=== PATIENT | male | born 1970 | race Two or more races ===

== ENCOUNTER 2024-04-27 08:19 | Outpatient (REF) | payer MEDICAID, SELFPAY ==
--- NOTE | ~2024-04-27 | XR_ITS ---
EXAMINATION: XR ANKLE RIGHT 3 VIEWS CLINICAL INFORMATION: Pain in right ankle and joints of right foot M25.571. COMPARISON: None TECHNIQUE: AP, lateral, and medial oblique views of the right ankle. FINDINGS: No fracture. Alignment is anatomic. No erosions. Mild to moderate degenerative changes in the mid foot. Achilles enthesophyte.. Soft tissues are normal. XR/XR ankle RT min 3V IMPRESSION: Mild to moderate degenerative changes in the midfoot. Achilles enthesophyte. Electronically signed by: Parker Santacruz MD 06/22/2024 08:54 AM EST
== END 2024-04-27 08:20 | disposition home or self-care (01) ==
LOC: HO.HOSX 08:19
PROVIDERS: Visit Provider Physician Assistant
DX: M19.071 Primary osteoarthritis, right ankle and foot (principal); M25.571 Pain in right ankle and joints of right foot
CPT/HCPCS: 73610; 99212

== ENCOUNTER 2024-04-27 10:52 | Outpatient (AMB) | payer MEDICAID, SELFPAY ==
--- NOTE | 2024-04-27 11:17 | MHC.OFFVIS ---
Vital Signs 04/27/24 11:18 Height 5 ft 9 in Weight 220 lb BMI 32.5 Intake Visit Reasons: BLOCK[employer] MET[employer] FORMS- RT ankle swelling Intake Note: Germán a 53 year old male who presents today for a new patient evaluation of right ankle. Patient reports for the past 10-12 months he has been experiencing intermittent swelling in his leg and his ankle stiffens up. Denies injury. He notices with cold weather his symptoms have been getting worse. No previous tx. He constantly limps and some days he is unable to bear weight. States numbness and tingling in his foot. He uses a cane with ambulation. Finds relief with ibuprofen. Allergies amoxicillin Allergy (Verified 04/27/24 11:19) Hives Medication List - Last Reconciled 04/27/24 by Lida Huang PA-C albuterol sulfate 90 mcg/actuation (Ventolin HFA) 2 puffs inhalation Q6H PRN buprenorphine-naloxone 8-2 mg (Suboxone) 3 film sublingual DAILY clonidine HCl 0.1 mg PO TID hydroxyzine pamoate mg PO TID methocarbamol 750 mg PO BID sertraline 25 mg PO DAILY trazodone 100 mg PO QPM HPI HPI [employer] FORMS- RT ankle swelling: Details: 53-year-old male who presents to the office today for an evaluation of right ankle pain for more than 10 months. He denies any ankle injury in the past. He currently states he has stiffness and sharp pain in his ankle as well as intermittent swelling in his leg. His pain is aggravated with sleeping, prolonged standing, walking long distances and in cold weather. His pain is alleviated with elevation. He also reports numbness and tingling in his foot. He constantly limps and, on some days, he is unable to weight bear. He uses a cane for ambulation. He finds mild relief with ibuprofen. He has not had any previous treatment. [facility] Social History (Updated 04/27/24 @ 11:19 by CHRISTIN Posada) Patient Tobacco Use Status: Current everyday Tobacco user Current occupational status: unemployed Review of Systems Const All systems reviewed & are unremarkable except as noted in HPI and below Physical Exam Vital Signs: BMI result Body Mass Index 32.5 Const General: cooperative, healthy appearing, comfortable, no acute distress, well developed and alert Orientation/consciousness: patient oriented x3 HEENT Head: Yes normal to inspection, Yes normocephalic and Yes atraumatic Eyes General: appearance normal, both eyes and all related structures Resp Effort & Inspection: normal respiratory effort and able to speak in complete sentences Cardio Rate: regular rate Peripheral pulses: Peripheral pulses 2+ throughout GI Palpation (GI): Soft to palpation Skin Lesions: no lesions Rashes: no rashes Neuro General: patient oriented x3 Extrem Other: Right ankle: Normal to inspection with no swelling over the medial and lateral malleolus with mild tenderness along the dorsum of the foot. No d discomfort along the posterior aspect of the ankle, no deformity along the Achilles tendon, negative Swartz?s. No pain along the syndesmosis or anterior tibia. No laxity, NVI. Results Reviewed Results Reviewed: Xrays of the right foot and ankle show mild oa Assessment & Plan Assessment & Plan (1) Osteoarthritis of right foot: Code(s): M19.071 - Primary osteoarthritis, right ankle and foot Category: Medical (2) Right ankle tendonitis: Code(s): M77.51 - Other enthesopathy of right foot and ankle Category: Medical Plan We discussed options which include PT, NSAIDs and injections. The patient will defer on the injection today and proceed with PT and NSAIDs. He was placed in a lace up ankle brace in the office today. A prescription of Celebrex was sent to his pharmacy. If symptoms persist, she will contact me , otherwise, PRN. Orders: Orders PT Evaluation and Treatment Today M19.071 - Primary osteoarthritis, right ankle and foot, M77.51 - Other enthesopathy of right foot and ankle XR ankle RT min 3V Today M25.571 - Pain in right ankle and joints of right foot Patient Instructions: Scribed for Lida Huang PA-C, by Connor Staples medical assistant supervisor, on 04/27/2024 at 11:15 AM EST.? I, Lida Huang PA-C, have personally reviewed and agree with the information entered by the scribe. Coding Level of Care Code New Pt Level 3 (61156) Complex EM visit Add On G2211 Diagnoses Osteoarthritis of right foot M19.071 Right ankle tendonitis M77.51
[2024-04-27 11:18] VITALS: BMI 32.5
== END 2024-04-27 11:54 | disposition home or self-care (01) ==
PROVIDERS: Visit Provider Physician Assistant
DX: M19.071 Primary osteoarthritis, right ankle and foot (principal); M77.51 Other enthesopathy of right foot and ankle
CPT/HCPCS: 99203